=== PATIENT | male | born 1945 | race Caucasian/White ===

== ENCOUNTER 2017-11-02 07:56 | Inpatient (IN) | payer MEDICARE, OTHER ==
[~2017-11-02] VITALS: Ht 170.2 cm; Wt 116.8 kg
[~2017-11-02 07:56] MED LIST: ACTOS30 MG PO; AMOXICILLIN 8751 TAB PO; CAPOTEN 50MG50 MG PO; GLUCOPHAGE500 MG/TAB PO; GLUCOPHAGE850 MG/TAB PO; ILOTYCIN5 MG/GM; JANUVIA50 MG PO; LASIX 40MG TABL40 MG PO; NORCO 325 MG-51 TAB PO; NORVASC 5MG5 MG/TAB PO; PERCOCET 325 MG1 TA2 PO; PREDNISONE10 MG PO; PYRIDIUM 100MG100 MG PO; SENOKOT S 50 MG1 TAB PO; SODIUM BICARBO650 MG PO; SYNTHROID0.175 MG PO; TIROSINT100 MCG PO; TYLENOL 500MG500 MG PO; ZANTAC 150MG T150 MG PO; ZESTRIL 5MG5 MG PO
[2017-11-02 08:06] VITALS: BP 155/72; PULSE 95; TEMP 97.4
[2017-11-02] MEDS ORDERED: VITAMIN D 1001000 IU PO (08:30)
[2017-11-02] MEDS ORDERED: IRON TABLETS325 MG PO (08:32)
[2017-11-02] MEDS ORDERED: CALCITRIOL PO (08:33)
[2017-11-02] MEDS ORDERED: PREDNISONE10 MG PO (08:33)
[2017-11-02] MEDS ORDERED: TUMS ULTRA1000 MG PO (08:34)
[2017-11-02] MEDS ORDERED: SODIUM BICARBO650 MG PO (08:37)
[2017-11-02 09:04] LABS: BASO % 0.4 % (0.0-2.0); EOS # 0.1 (0.0-0.7); EOS % 1.3 % (0-4.0); GRAN # 6.4 (1.4-6.5); GRAN % 76.1 % (42.2-75.2); HEMATOCRIT 32.1 % (42.0-52.0); HEMOGLOBIN 9.9 g/dl (13.5-18.0); LYMPH # 1.3 (1.2-3.4); LYMPH % 14.9 % (20.0-51.0); MEAN CELL VOLUME 94 fl (80.0-100.0); MEAN CORPUSCULAR HEMOGLOBIN 29 pg (27.0-31.0); MEAN CORPUSCULAR HGB CONC 31 g/dl (33.0-37.0); MEAN PLATELET VOLUME 9.9 fl (7.4-10.4); MONO # 0.6 (0.1-0.6); MONO % 6.8 % (1.7-9.3); PLATELET COUNT 166 K/mm3 (130-400); REDCELL DISTRIBUTION WIDTH-CV 15.8 % (11.5-14.5)
[2017-11-02 09:24] LABS: ALBUMIN 3.5 gm/dL (3.5-5.0); BILIRUBIN,TOTAL 0.5 mg/dL (0.0-1.0); CALCIUM 9.4 mg/dL (8.4-10.2); PHOSPHOROUS 4.2 mg/dL (2.5-4.5); POTASSIUM 3.6 mmol/L (3.4-5.0); TOTAL PROTEIN 6.9 gm/dL (6.4-8.2)
[2017-11-02 09:43] LABS: CREATININE, serum 4.96 mg/dL (0.66-1.25)
[2017-11-02 12:04] VITALS: BP 120/62; PULSE 84; TEMP 98.1
[2017-11-02 15:47] VITALS: BP 117/45; PULSE 84; TEMP 99
[2017-11-02 20:19] VITALS: BP 132/50; PULSE 92; TEMP 98.8
[2017-11-02 23:37] LABS: HEPATITIS C VIRUS ANTIBODY Negative (())
[2017-11-03] VITALS (9 sets, daily range): BP systolic 112–159; BP diastolic 49–86; PULSE 77–99; TEMP 98.6–101.2
[2017-11-03 00:25] LABS: HEPATITIS B CORE AB,TOTAL Negative (()); HEPATITIS B SURFACE ANTIBODY <2.0 (()); HEPATITIS B SURFACE ANTIGEN Negative (())
[2017-11-03 09:39] LABS: ALBUMIN 3.5 gm/dL (3.5-5.0); CALCIUM 9.5 mg/dL (8.4-10.2); PHOSPHOROUS 3.3 mg/dL (2.5-4.5); POTASSIUM 3.9 mmol/L (3.4-5.0)
[2017-11-03 09:50] LABS: CREATININE, serum 3.99 mg/dL (0.66-1.25)
[2017-11-04 00:30] VITALS: BP 115/39; PULSE 92; TEMP 99.6
[2017-11-04 06:23] VITALS: BP 136/56; PULSE 96; TEMP 98.1
[2017-11-04 09:00] LABS: ALBUMIN 2.9 gm/dL (3.5-5.0); CALCIUM 8.6 mg/dL (8.4-10.2); PHOSPHOROUS 3.6 mg/dL (2.5-4.5); POTASSIUM 3.9 mmol/L (3.4-5.0)
[2017-11-04 09:06] LABS: CREATININE, serum 4.16 mg/dL (0.66-1.25)
[2017-11-04 12:18] VITALS: BP 121/41; PULSE 95; TEMP 98
[2017-11-04 12:30] LABS: BASO % 0.3 % (0.0-2.0); EOS % 0.4 % (0-4.0); GRAN # 7.7 (1.4-6.5); GRAN % 78.4 % (42.2-75.2); LYMPH # 0.9 (1.2-3.4); MEAN CELL VOLUME 95 fl (80.0-100.0); MEAN CORPUSCULAR HGB CONC 31 g/dl (33.0-37.0); MEAN PLATELET VOLUME 9.5 fl (7.4-10.4); MONO # 1.1 (0.1-0.6); MONO % 11.2 % (1.7-9.3); PLATELET COUNT 125 K/mm3 (130-400); RED BLOOD COUNT 2.85 M/mm3 (4.20-5.60); REDCELL DISTRIBUTION WIDTH-CV 15.4 % (11.5-14.5)
[2017-11-04 12:37] LABS: HEMOGLOBIN 8.3 g/dl (13.5-18.0); MEAN CORPUSCULAR HEMOGLOBIN 29 pg (27.0-31.0)
[2017-11-04 13:07] LABS: ERYTHROCYTE SEDIMENTATION RATE 123 mm/hr (0-30)
[2017-11-04 16:50] LABS: COLLECTION METHOD CLEAN CATCH
[2017-11-04 17:01] LABS: PH 5 (5-8); SQUAMOUS EPITHELIAL None Seen /hpf; URINE APPEARANCE Hazy; URINE BACTERIA None Seen /hpf; URINE BILIRUBIN Negative (NEGATIVE); URINE BLOOD 1+ (NEGATIVE); URINE COLOR Yellow; URINE GLUCOSE Negative (NEGATIVE); URINE KETONE Negative (NEGATIVE); URINE LEUKOCYTE ESTERASE Negative (NEGATIVE); URINE NITRATE Negative (NEGATIVE); URINE PROTEIN(semi-quant) 1+ (NEGATIVE); URINE RBC 0-2 /hpf; URINE UROBILINOGEN Negative (NEGATIVE)
[2017-11-04 17:03] VITALS: BP 119/48; PULSE 105; TEMP 101.1
[2017-11-04 19:43] VITALS: BP 110/40; PULSE 110; TEMP 99.6
[2017-11-05 00:08] VITALS: BP 106/43; PULSE 116; TEMP 102.2
[2017-11-05 04:16] VITALS: BP 96/39; PULSE 108; TEMP 99.7
[2017-11-05 07:38] LABS: HCV GENOTYPE Undetected (())
[2017-11-05 08:04] LABS: BASO % 0.3 % (0.0-2.0); EOS # 0.1 (0.0-0.7); EOS % 0.5 % (0-4.0); GRAN % 77.1 % (42.2-75.2); LYMPH # 1.3 (1.2-3.4); LYMPH % 11.4 % (20.0-51.0); MEAN CELL VOLUME 96 fl (80.0-100.0); MEAN CORPUSCULAR HGB CONC 31 g/dl (33.0-37.0); MEAN PLATELET VOLUME 9.7 fl (7.4-10.4); MONO # 1.2 (0.1-0.6); MONO % 10.1 % (1.7-9.3); PLATELET COUNT 111 K/mm3 (130-400); RED BLOOD COUNT 2.67 M/mm3 (4.20-5.60); REDCELL DISTRIBUTION WIDTH-CV 15.6 % (11.5-14.5)
[2017-11-05 08:09] LABS: HEMATOCRIT 25.6 % (42.0-52.0); HEMOGLOBIN 7.8 g/dl (13.5-18.0); MEAN CORPUSCULAR HEMOGLOBIN 29 pg (27.0-31.0)
[2017-11-05 08:17] LABS: ALBUMIN 2.9 gm/dL (3.5-5.0); CALCIUM 8.7 mg/dL (8.4-10.2); PHOSPHOROUS 3.7 mg/dL (2.5-4.5); POTASSIUM 4.6 mmol/L (3.4-5.0)
[2017-11-05 08:26] LABS: CREATININE, serum 4.39 mg/dL (0.66-1.25)
[2017-11-05 12:15] VITALS: BP 94/53; PULSE 111; TEMP 100.9
[2017-11-05 16:03] VITALS: BP 96/46; PULSE 123; TEMP 99.2
[2017-11-05 20:45] VITALS: BP 90/48; PULSE 103; TEMP 102.8
[2017-11-06] VITALS (7 sets, daily range): BP systolic 91–135; BP diastolic 36–77; PULSE 64–90; TEMP 98.3–99.8
[2017-11-06 06:21] LABS: MEAN CELL VOLUME 96 fl (80.0-100.0); MEAN CORPUSCULAR HGB CONC 31 g/dl (33.0-37.0); MEAN PLATELET VOLUME 10.4 fl (7.4-10.4); PLATELET COUNT 125 K/mm3 (130-400); RED BLOOD COUNT 2.53 M/mm3 (4.20-5.60); REDCELL DISTRIBUTION WIDTH-CV 15.4 % (11.5-14.5)
[2017-11-06 06:25] LABS: HEMATOCRIT 24.2 % (42.0-52.0); HEMOGLOBIN 7.5 g/dl (13.5-18.0); MEAN CORPUSCULAR HEMOGLOBIN 30 pg (27.0-31.0)
[2017-11-06 06:29] LABS: ALBUMIN 2.9 gm/dL (3.5-5.0); CALCIUM 8.9 mg/dL (8.4-10.2); PHOSPHOROUS 4.8 mg/dL (2.5-4.5); POTASSIUM 4.4 mmol/L (3.4-5.0)
[2017-11-06 06:44] LABS: CREATININE, serum 4.33 mg/dL (0.66-1.25)
[2017-11-06 09:16] LABS: BAND 53 % (0-10); LYMPHOCYTE 6 % (20.0-51.0); NEUTROPHILS 40 % (42.0-75.2); NUCLEATED RED BLOOD CELL 1 (0-6); OVALOCYTES 1+; PLATELET ESTIMATE NORMAL (NORMAL)
[2017-11-07] VITALS (7 sets, daily range): BP systolic 92–109; BP diastolic 43–62; PULSE 77–84; TEMP 97.6–99.1
[2017-11-07 06:47] LABS: BASO % 0.3 % (0.0-2.0); EOS # 0.1 (0.0-0.7); EOS % 1.4 % (0-4.0); GRAN # 4.6 (1.4-6.5); GRAN % 73.9 % (42.2-75.2); LYMPH # 0.9 (1.2-3.4); LYMPH % 14.9 % (20.0-51.0); MEAN CELL VOLUME 94 fl (80.0-100.0); MEAN CORPUSCULAR HGB CONC 31 g/dl (33.0-37.0); MEAN PLATELET VOLUME 10.6 fl (7.4-10.4); MONO # 0.6 (0.1-0.6); PLATELET COUNT 137 K/mm3 (130-400); REDCELL DISTRIBUTION WIDTH-CV 15.2 % (11.5-14.5)
[2017-11-07 06:50] LABS: HEMATOCRIT 22.6 % (42.0-52.0); MEAN CORPUSCULAR HEMOGLOBIN 29 pg (27.0-31.0)
[2017-11-07 06:54] LABS: ALBUMIN 2.8 gm/dL (3.5-5.0); CALCIUM 8.7 mg/dL (8.4-10.2); POTASSIUM 4.3 mmol/L (3.4-5.0)
[2017-11-07 06:56] LABS: CREATININE, serum 5.7 mg/dL (0.66-1.25)
[2017-11-08 05:01] VITALS: BP 97/58; PULSE 77; TEMP 98
[2017-11-08 06:51] LABS: MEAN CELL VOLUME 94 fl (80.0-100.0); MEAN CORPUSCULAR HGB CONC 31 g/dl (33.0-37.0); PLATELET COUNT 160 K/mm3 (130-400); RED BLOOD COUNT 2.67 M/mm3 (4.20-5.60); REDCELL DISTRIBUTION WIDTH-CV 15.1 % (11.5-14.5)
[2017-11-08 06:53] LABS: HEMATOCRIT 25.2 % (42.0-52.0); HEMOGLOBIN 7.7 g/dl (13.5-18.0); MEAN CORPUSCULAR HEMOGLOBIN 29 pg (27.0-31.0)
[2017-11-08 07:09] LABS: ALBUMIN 2.9 gm/dL (3.5-5.0); CALCIUM 8.7 mg/dL (8.4-10.2); PHOSPHOROUS 4.9 mg/dL (2.5-4.5)
[2017-11-08 07:14] LABS: CREATININE, serum 6.75 mg/dL (0.66-1.25)
[2017-11-08 07:19] LABS: EOSINOPHIL 4 % (0-4); LYMPHOCYTE 20 % (20.0-51.0); MYELOCYTE 1 % (0-0); NEUTROPHILS 63 % (42.0-75.2); PLATELET ESTIMATE NORMAL (NORMAL)
[2017-11-08 07:20] LABS: POLYCHROMASIA 1+
[2017-11-08 08:27] VITALS: BP 99/44; PULSE 76; TEMP 98.4
[2017-11-08 11:16] VITALS: BP 93/38; PULSE 78; TEMP 98.6
[2017-11-08] MEDS ORDERED: DOXYCYCLINE HY100 MG PO (11:23)
[2017-11-08] MEDS ORDERED: ZYLOPRIM 300MG300 MG PO (11:24)
== END 2017-11-08 13:15 | disposition home or self-care (01) | DRG 685 ==
LOC: MEDICAL 07:56
PROVIDERS: Internal Medicine Nephrology
PROC: 02H633Z Insertion of Infusion Device into Right Atrium, Percutaneous Approach (ICD-10-PCS; principal; 2017-11-03)
PROC: 0S9C3ZX Drainage of Right Knee Joint, Percutaneous Approach, Diagnostic (ICD-10-PCS; 2017-11-04)
PROC: 5A1D70Z Performance of Urinary Filtration, Intermittent, Less than 6 Hours Per Day (ICD-10-PCS; 2017-11-04)
PROC: 5A1D70Z Performance of Urinary Filtration, Intermittent, Less than 6 Hours Per Day (ICD-10-PCS; 2017-11-05)
DX: Z49.01 Encounter for fitting and adjustment of extracorporeal dialysis catheter (principal); N18.6 End stage renal disease; I13.2 Hypertensive heart and chronic kidney disease with heart failure and with stage 5 chronic kidney disease, or end stage renal disease; E11.22 Type 2 diabetes mellitus with diabetic chronic kidney disease; E11.21 Type 2 diabetes mellitus with diabetic nephropathy; I50.9 Heart failure, unspecified; D63.1 Anemia in chronic kidney disease; M25.461 Effusion, right knee; Z87.442 Personal history of urinary calculi; M10.9 Gout, unspecified
CPT/HCPCS: C1750; C1769; J0690; J0881; J1644; J1956; J2250; J3010; J3370; J7050; J7120; J7512

== ENCOUNTER 2017-11-23 11:10 | Outpatient (CLI) | payer MEDICARE, OTHER ==
[2017-11-23] VITALS (9 sets, daily range): BP systolic 85–118; BP diastolic 34–99; PULSE 70–103; TEMP 97.6–98
[~2017-11-23] VITALS: Ht 170.2 cm; Wt 110.0 kg
[~2017-11-23 11:10] MED LIST changes: +CALCITRIOL PO; +DOXYCYCLINE HY100 MG PO; +IRON TABLETS325 MG PO; +TUMS ULTRA1000 MG PO; +VITAMIN D 1001000 IU PO; +ZYLOPRIM 300MG300 MG PO
[2017-11-23 13:14] LABS: MEAN CELL VOLUME 96 fl (80.0-100.0); MEAN CORPUSCULAR HGB CONC 31 g/dl (33.0-37.0); MEAN PLATELET VOLUME 11.4 fl (7.4-10.4); PLATELET COUNT 131 K/mm3 (130-400); RED BLOOD COUNT 2.86 M/mm3 (4.20-5.60); REDCELL DISTRIBUTION WIDTH-CV 16.6 % (11.5-14.5)
[2017-11-23 13:17] LABS: HEMATOCRIT 27.4 % (42.0-52.0); HEMOGLOBIN 8.4 g/dl (13.5-18.0); MEAN CORPUSCULAR HEMOGLOBIN 29 pg (27.0-31.0)
[2017-11-23 13:24] LABS: CALCIUM 9.2 mg/dL (8.4-10.2); POTASSIUM 5.2 mmol/L (3.4-5.0)
[2017-11-23 13:27] LABS: INR 1.3 (0.8-3.0); PROTHROMBIN TIME 14.6 SECONDS (9.7-12.8)
[2017-11-23 13:32] LABS: CREATININE, serum 6.78 mg/dL (0.66-1.25)
== END 2017-11-23 17:05 | disposition home or self-care (01) ==
LOC: COL.CAR 11:10
PROVIDERS: Radiology Diagnostic Radiology
DX: I12.0 Hypertensive chronic kidney disease with stage 5 chronic kidney disease or end stage renal disease (principal); E11.22 Type 2 diabetes mellitus with diabetic chronic kidney disease; N18.6 End stage renal disease
CPT/HCPCS: C1769; J0690; J1644; J2250; J3010

== ENCOUNTER → 2018-01-04 | Outpatient (CLI) | payer MEDICARE, OTHER ==
[~2018-01-04] VITALS: Ht 170.2 cm; Wt 108.2 kg
[~2018-01-04] MED LIST changes: +COUMADIN 2MG2 MG/TAB PO; +COUMADIN4 MG PO
[2018-01-04 13:33] VITALS: BP 132/60; PULSE 75
[2018-01-04 13:43] LABS: INR 1.2 (0.8-3.0); PROTHROMBIN TIME 13.8 SECONDS (9.7-12.8)
[2018-01-04 14:25] VITALS: BP 118/56; PULSE 52
== END ==
LOC: COL.RAD 13:17
PROVIDERS: Internal Medicine Nephrology
DX: Z49.01 Encounter for fitting and adjustment of extracorporeal dialysis catheter (principal)

== ENCOUNTER 2018-01-11 15:58 | Inpatient (IN) | payer MEDICARE, OTHER ==
[~2018-01-11] VITALS: Ht 170.2 cm; Wt 109.5 kg
[2018-01-11 17:57] VITALS: BP 100/60; PULSE 63; TEMP 98.6
[2018-01-11 19:05] LABS: COLLECTION METHOD CATHETER
[2018-01-11 19:22] LABS: BUDDING YEAST Present /hpf; PH 6 (5-8); SQUAMOUS EPITHELIAL 0-2 /hpf; URINE APPEARANCE Cloudy; URINE BACTERIA Rare /hpf; URINE BILIRUBIN Negative (NEGATIVE); URINE BLOOD 2+ (NEGATIVE); URINE COLOR Yellow; URINE GLUCOSE Negative (NEGATIVE); URINE KETONE Negative (NEGATIVE); URINE LEUKOCYTE ESTERASE 3+ (NEGATIVE); URINE NITRATE Negative (NEGATIVE); URINE PROTEIN(semi-quant) 2+ (NEGATIVE); URINE RBC 20-50 /hpf; URINE UROBILINOGEN Negative (NEGATIVE)
[2018-01-11 21:57] VITALS: BP 115/66; PULSE 134; TEMP 98.7
[2018-01-12] VITALS (9 sets, daily range): BP systolic 85–142; BP diastolic 25–88; PULSE 52–144; TEMP 97.5–100.8
[2018-01-12 06:12] LABS: INR 1.5 (0.8-3.0); PROTHROMBIN TIME 17.9 SECONDS (9.7-12.8)
[2018-01-12 06:15] LABS: MEAN CELL VOLUME 95 fl (80.0-100.0); MEAN CORPUSCULAR HGB CONC 32 g/dl (33.0-37.0); MEAN PLATELET VOLUME 11.7 fl (7.4-10.4); PLATELET COUNT 126 K/mm3 (130-400); RED BLOOD COUNT 3.16 M/mm3 (4.20-5.60); REDCELL DISTRIBUTION WIDTH-CV 16.4 % (11.5-14.5)
[2018-01-12 06:18] LABS: ALBUMIN 2.9 gm/dL (3.5-5.0); CALCIUM 8.1 mg/dL (8.4-10.2); PHOSPHOROUS 8.2 mg/dL (2.5-4.5); POTASSIUM 5.2 mmol/L (3.4-5.0)
[2018-01-12 06:20] LABS: HEMOGLOBIN 9.6 g/dl (13.5-18.0); MEAN CORPUSCULAR HEMOGLOBIN 30 pg (27.0-31.0)
[2018-01-12 06:29] LABS: CREATININE, serum 7.54 mg/dL (0.66-1.25)
[2018-01-12 06:58] LABS: BAND 16 % (0-10); LYMPHOCYTE 4 % (20.0-51.0); MYELOCYTE 1 % (0-0); NEUTROPHILS 78 % (42.0-75.2)
[2018-01-12 06:59] LABS: ANISOCYTOSIS 1+; PLATELET ESTIMATE DECREASED (NORMAL)
[2018-01-12 07:00] LABS: DOHLE BODIES PRESENT; TOXIC GRANULATION PRESENT
[2018-01-12 12:55] LABS: ALBUMIN 2.9 gm/dL (3.5-5.0); BILIRUBIN,DIRECT 0.4 mg/dL (0.0-0.4); BILIRUBIN,TOTAL 0.4 mg/dL (0.0-1.0); TOTAL PROTEIN 6.3 gm/dL (6.4-8.2)
[2018-01-13] VITALS (9 sets, daily range): BP systolic 71–112; BP diastolic 25–68; PULSE 68–118; TEMP 97.8–98.9
[2018-01-13 07:01] LABS: PROTHROMBIN TIME 23.8 SECONDS (9.7-12.8)
[2018-01-13 07:03] LABS: ALBUMIN 2.4 gm/dL (3.5-5.0); MEAN CELL VOLUME 95 fl (80.0-100.0); MEAN CORPUSCULAR HGB CONC 32 g/dl (33.0-37.0); MEAN PLATELET VOLUME 12.2 fl (7.4-10.4); PHOSPHOROUS 6.5 mg/dL (2.5-4.5); PLATELET COUNT 105 K/mm3 (130-400); POTASSIUM 4.7 mmol/L (3.4-5.0); RED BLOOD COUNT 2.69 M/mm3 (4.20-5.60); REDCELL DISTRIBUTION WIDTH-CV 16.2 % (11.5-14.5)
[2018-01-13 07:08] LABS: VANCOMYCIN,RANDOM 30.44 ug/mL
[2018-01-13 07:33] LABS: CREATININE, serum 4.81 mg/dL (0.66-1.25)
[2018-01-13 07:40] LABS: HEMATOCRIT 25.6 % (42.0-52.0); HEMOGLOBIN 8.1 g/dl (13.5-18.0); MEAN CORPUSCULAR HEMOGLOBIN 30 pg (27.0-31.0)
[2018-01-13 08:20] LABS: BAND 40 % (0-10); EOSINOPHIL 1 % (0-4); LYMPHOCYTE 11 % (20.0-51.0); NEUTROPHILS 47 % (42.0-75.2); PLATELET ESTIMATE DECREASED (NORMAL); TOXIC GRANULATION PRESENT
[2018-01-13 08:21] LABS: ANISOCYTOSIS 2+; HYPOCHROMIA 1+
[2018-01-13 08:22] LABS: TEAR DROP CELLS 1+
[2018-01-14 03:52] VITALS: PULSE 78; TEMP 98.2
[2018-01-14 06:01] VITALS: BP 97/48
[2018-01-14 07:40] LABS: MEAN CELL VOLUME 98 fl (80.0-100.0); MEAN CORPUSCULAR HGB CONC 30 g/dl (33.0-37.0); MEAN PLATELET VOLUME 10.9 fl (7.4-10.4); PLATELET COUNT 118 K/mm3 (130-400); RED BLOOD COUNT 2.73 M/mm3 (4.20-5.60); REDCELL DISTRIBUTION WIDTH-CV 16.9 % (11.5-14.5)
[2018-01-14 07:45] LABS: INR 3.4 (0.8-3.0); PROTHROMBIN TIME 40.9 SECONDS (9.7-12.8)
[2018-01-14 07:46] LABS: HEMATOCRIT 26.8 % (42.0-52.0); HEMOGLOBIN 8.1 g/dl (13.5-18.0); MEAN CORPUSCULAR HEMOGLOBIN 30 pg (27.0-31.0)
[2018-01-14 07:53] LABS: ALBUMIN 2.3 gm/dL (3.5-5.0); CALCIUM 7.9 mg/dL (8.4-10.2); CREATININE, serum 3.76 mg/dL (0.66-1.25); PHOSPHOROUS 4.8 mg/dL (2.5-4.5); POTASSIUM 4.3 mmol/L (3.4-5.0)
[2018-01-14 08:15] LABS: VANCOMYCIN,RANDOM 19.2 ug/mL
[2018-01-14 08:30] VITALS: BP 78/36; PULSE 81; TEMP 98.2
[2018-01-14 08:42] LABS: ANISOCYTOSIS 1+; BAND 19 % (0-10); EOSINOPHIL 2 % (0-4); HYPOCHROMIA 3+; LYMPHOCYTE 11 % (20.0-51.0); NEUTROPHILS 64 % (42.0-75.2); PLATELET ESTIMATE DECREASED (NORMAL)
[2018-01-14 12:22] VITALS: BP 88/39; PULSE 81; TEMP 98.2
[2018-01-14 15:17] VITALS: BP 88/66; PULSE 84; TEMP 98
[2018-01-14 21:31] VITALS: BP 94/31; PULSE 143; TEMP 98.6
[2018-01-15] VITALS (7 sets, daily range): BP systolic 76–119; BP diastolic 27–49; PULSE 59–144; TEMP 98–99.7
[2018-01-15 07:14] LABS: MEAN CELL VOLUME 99 fl (80.0-100.0); MEAN CORPUSCULAR HGB CONC 30 g/dl (33.0-37.0); MEAN PLATELET VOLUME 11.4 fl (7.4-10.4); PLATELET COUNT 152 K/mm3 (130-400); RED BLOOD COUNT 2.89 M/mm3 (4.20-5.60); REDCELL DISTRIBUTION WIDTH-CV 16.8 % (11.5-14.5)
[2018-01-15 07:21] LABS: HEMATOCRIT 28.7 % (42.0-52.0); HEMOGLOBIN 8.6 g/dl (13.5-18.0); MEAN CORPUSCULAR HEMOGLOBIN 30 pg (27.0-31.0)
[2018-01-15 07:34] LABS: ALBUMIN 2.3 gm/dL (3.5-5.0); CALCIUM 7.8 mg/dL (8.4-10.2); CREATININE, serum 3.18 mg/dL (0.66-1.25); PHOSPHOROUS 4.3 mg/dL (2.5-4.5)
[2018-01-15 07:47] LABS: PROTHROMBIN TIME 60.2 SECONDS (9.7-12.8)
[2018-01-15 08:50] LABS: ANISOCYTOSIS 1+; BAND 10 % (0-10); BASOPHIL 1 % (0-2); EOSINOPHIL 6 % (0-4); HYPOCHROMIA 2+; LYMPHOCYTE 25 % (20.0-51.0); NEUTROPHILS 49 % (42.0-75.2); OVALOCYTES 1+; PLATELET ESTIMATE NORMAL (NORMAL)
[2018-01-15 19:53] LABS: COLLECTION METHOD CATHETER
[2018-01-15 20:07] LABS: PH 6 (5-8); SQUAMOUS EPITHELIAL 0-2 /hpf; URINE APPEARANCE Turbid; URINE BACTERIA None Seen /hpf; URINE BILIRUBIN Negative (NEGATIVE); URINE BLOOD 2+ (NEGATIVE); URINE COLOR Amber; URINE GLUCOSE Negative (NEGATIVE); URINE KETONE Negative (NEGATIVE); URINE LEUKOCYTE ESTERASE 3+ (NEGATIVE); URINE NITRATE Negative (NEGATIVE); URINE PROTEIN(semi-quant) 2+ (NEGATIVE); URINE RBC >50 /hpf; URINE UROBILINOGEN Negative (NEGATIVE); URINE WBC >50 /hpf
[2018-01-16 03:26] VITALS: BP 111/84; PULSE 117; TEMP 98.8
[2018-01-16 06:46] LABS: BASO % 0.1 % (0.0-2.0); EOS % 0.4 % (0-4.0); GRAN # 5.8 (1.4-6.5); GRAN % 85.4 % (42.2-75.2); LYMPH # 0.6 (1.2-3.4); LYMPH % 9.5 % (20.0-51.0); MEAN CELL VOLUME 99 fl (80.0-100.0); MEAN CORPUSCULAR HGB CONC 31 g/dl (33.0-37.0); MEAN PLATELET VOLUME 11.7 fl (7.4-10.4); MONO # 0.3 (0.1-0.6); MONO % 3.7 % (1.7-9.3); PLATELET COUNT 159 K/mm3 (130-400); RED BLOOD COUNT 2.78 M/mm3 (4.20-5.60); REDCELL DISTRIBUTION WIDTH-CV 16.9 % (11.5-14.5)
[2018-01-16 06:53] LABS: HEMATOCRIT 27.5 % (42.0-52.0); HEMOGLOBIN 8.4 g/dl (13.5-18.0); MEAN CORPUSCULAR HEMOGLOBIN 30 pg (27.0-31.0)
[2018-01-16 06:55] LABS: ALBUMIN 2.3 gm/dL (3.5-5.0); CALCIUM 7.7 mg/dL (8.4-10.2); PHOSPHOROUS 5.1 mg/dL (2.5-4.5); POTASSIUM 4.1 mmol/L (3.4-5.0)
[2018-01-16 07:24] LABS: CREATININE, serum 4.68 mg/dL (0.66-1.25)
[2018-01-16 07:26] LABS: INR 5.6 (0.8-3.0); PROTHROMBIN TIME 67.7 SECONDS (9.7-12.8)
[2018-01-16 07:52] VITALS: BP 88/49; PULSE 140; TEMP 98.6
[2018-01-16 12:28] VITALS: BP 97/35; PULSE 135; TEMP 98.2
[2018-01-16 16:41] VITALS: BP 80/53; PULSE 100; TEMP 98.2
[2018-01-16 21:50] VITALS: BP 106/42; PULSE 137; TEMP 98.6
[2018-01-16 23:57] VITALS: BP 97/38; PULSE 133; TEMP 98.6
[2018-01-17 02:45] VITALS: BP 91/31; PULSE 127; TEMP 98.5
[2018-01-17 07:09] LABS: MEAN CELL VOLUME 98 fl (80.0-100.0); MEAN CORPUSCULAR HGB CONC 31 g/dl (33.0-37.0); MEAN PLATELET VOLUME 10.5 fl (7.4-10.4); PLATELET COUNT 155 K/mm3 (130-400); RED BLOOD COUNT 2.68 M/mm3 (4.20-5.60)
[2018-01-17 07:10] LABS: HEMATOCRIT 26.2 % (42.0-52.0); MEAN CORPUSCULAR HEMOGLOBIN 30 pg (27.0-31.0)
[2018-01-17 07:28] LABS: INR 2.5 (0.8-3.0); PROTHROMBIN TIME 29.9 SECONDS (9.7-12.8)
[2018-01-17 07:34] LABS: ALBUMIN 2.2 gm/dL (3.5-5.0); CALCIUM 7.6 mg/dL (8.4-10.2); PHOSPHOROUS 7.6 mg/dL (2.5-4.5); POTASSIUM 4.5 mmol/L (3.4-5.0)
[2018-01-17 07:51] LABS: CREATININE, serum 6.23 mg/dL (0.66-1.25)
[2018-01-17 08:09] VITALS: BP 79/53; PULSE 127; TEMP 97.8
[2018-01-17 08:31] LABS: ANISOCYTOSIS 1+; BAND 9 % (0-10); BASOPHIL 1 % (0-2); LYMPHOCYTE 12 % (20.0-51.0); NEUTROPHILS 77 % (42.0-75.2); OVALOCYTES 1+; PLATELET ESTIMATE NORMAL (NORMAL)
[2018-01-17 11:30] VITALS: BP 87/42; PULSE 74
[2018-01-17 11:45] VITALS: BP 80/35; PULSE 73
[2018-01-17 12:00] VITALS: BP 89/55; PULSE 73; TEMP 97.5
[2018-01-17 21:45] VITALS: BP 126/107; BP 84/46; PULSE 85; TEMP 98.1
[2018-01-18 00:34] VITALS: BP 91/61; PULSE 82; TEMP 98.2
[2018-01-18 04:20] VITALS: BP 106/75; PULSE 83; TEMP 98.8
[2018-01-18 06:33] LABS: INR 2.4 (0.8-3.0); PROTHROMBIN TIME 28.5 SECONDS (9.7-12.8)
[2018-01-18 08:21] VITALS: BP 113/89; PULSE 83; TEMP 98.3
[2018-01-18 09:06] LABS: BASO % 0.4 % (0.0-2.0); EOS # 0.1 (0.0-0.7); EOS % 0.9 % (0-4.0); GRAN # 4.3 (1.4-6.5); GRAN % 80.8 % (42.2-75.2); LYMPH # 0.7 (1.2-3.4); LYMPH % 12.9 % (20.0-51.0); MEAN CELL VOLUME 99 fl (80.0-100.0); MEAN CORPUSCULAR HGB CONC 30 g/dl (33.0-37.0); MEAN PLATELET VOLUME 11.8 fl (7.4-10.4); MONO # 0.2 (0.1-0.6); MONO % 4.2 % (1.7-9.3); PLATELET COUNT 192 K/mm3 (130-400); RED BLOOD COUNT 2.69 M/mm3 (4.20-5.60); REDCELL DISTRIBUTION WIDTH-CV 17.2 % (11.5-14.5)
[2018-01-18 09:08] LABS: HEMATOCRIT 26.5 % (42.0-52.0); MEAN CORPUSCULAR HEMOGLOBIN 30 pg (27.0-31.0)
[2018-01-18 12:18] VITALS: BP 106/62; PULSE 88; TEMP 98.1
[2018-01-18 15:52] VITALS: BP 128/51; PULSE 76; TEMP 98.1
[2018-01-18 20:17] VITALS: BP 78/55; PULSE 97; TEMP 98.6
[2018-01-19] VITALS: BP 118/45; PULSE 75; TEMP 98.6
[2018-01-19 03:45] VITALS: BP 101/37; PULSE 72; TEMP 97.9
[2018-01-19 06:58] LABS: INR 2.5 (0.8-3.0); PROTHROMBIN TIME 29.1 SECONDS (9.7-12.8)
[2018-01-19 07:29] LABS: ALBUMIN 2.3 gm/dL (3.5-5.0); CALCIUM 7.9 mg/dL (8.4-10.2); PHOSPHOROUS 6.2 mg/dL (2.5-4.5)
[2018-01-19 07:30] LABS: CREATININE, serum 5.41 mg/dL (0.66-1.25)
[2018-01-19 10:37] VITALS: BP 106/46; PULSE 76; TEMP 97.8
[2018-01-19 15:38] VITALS: BP 93/28; PULSE 84; TEMP 97.8
[2018-01-19 20:34] VITALS: BP 87/36; PULSE 86; TEMP 98.1
[2018-01-19 21:39] VITALS: BP 114/37
[2018-01-20] VITALS (8 sets, daily range): BP systolic 95–147; BP diastolic 27–97; PULSE 71–79; TEMP 97.8–98.9
[2018-01-20 06:44] LABS: INR 2.7 (0.8-3.0); PROTHROMBIN TIME 31.5 SECONDS (9.7-12.8)
[2018-01-21 01:03] VITALS: BP 106/42
[2018-01-21 04:11] VITALS: BP 130/49; PULSE 72; TEMP 97.8
[2018-01-21 07:01] LABS: INR 2.9 (0.8-3.0); PROTHROMBIN TIME 34.4 SECONDS (9.7-12.8)
[2018-01-21] MEDS ORDERED: COUMADIN 2MG2 MG/TAB PO (11:24)
[2018-01-21] MEDS ORDERED: CORDARONE200 MG/TAB PO (11:26)
[2018-01-21] MEDS ORDERED: VANCOMYCIN HYD750 MG IV (11:30)
[2018-01-21] MEDS ORDERED: *Vancomycin Dosing P IV (11:30)
[2018-01-21 12:00] VITALS: BP 113/54; PULSE 75; TEMP 97.7
== END 2018-01-21 14:24 | DRG 871 ==
LOC: SURG 15:58 → MEDICAL 17:09 → SURG 17:09 → MEDICAL 01-12 10:11
PROVIDERS: Internal Medicine; Internal Medicine Nephrology; Nurse Practitioner
PROC: 5A1D70Z Performance of Urinary Filtration, Intermittent, Less than 6 Hours Per Day (ICD-10-PCS; principal; 2018-01-12)
PROC: 5A1D70Z Performance of Urinary Filtration, Intermittent, Less than 6 Hours Per Day (ICD-10-PCS; 2018-01-12)
PROC: 5A1D70Z Performance of Urinary Filtration, Intermittent, Less than 6 Hours Per Day (ICD-10-PCS; 2018-01-12)
PROC: 5A1D70Z Performance of Urinary Filtration, Intermittent, Less than 6 Hours Per Day (ICD-10-PCS; 2018-01-12)
PROC: 5A1D70Z Performance of Urinary Filtration, Intermittent, Less than 6 Hours Per Day (ICD-10-PCS; 2018-01-12)
PROC: 5A1D70Z Performance of Urinary Filtration, Intermittent, Less than 6 Hours Per Day (ICD-10-PCS; 2018-01-12)
PROC: 5A2204Z Restoration of Cardiac Rhythm, Single (ICD-10-PCS; 2018-01-12)
PROC: 5A2204Z Restoration of Cardiac Rhythm, Single (ICD-10-PCS; 2018-01-17)
DX: A41.02 Sepsis due to Methicillin resistant Staphylococcus aureus (principal); N18.6 End stage renal disease; I13.2 Hypertensive heart and chronic kidney disease with heart failure and with stage 5 chronic kidney disease, or end stage renal disease; I50.32 Chronic diastolic (congestive) heart failure; N39.0 Urinary tract infection, site not specified; I48.92 Unspecified atrial flutter; I50.22 Chronic systolic (congestive) heart failure; E11.22 Type 2 diabetes mellitus with diabetic chronic kidney disease; Z99.2 Dependence on renal dialysis; B95.62 Methicillin resistant Staphylococcus aureus infection as the cause of diseases classified elsewhere; D63.1 Anemia in chronic kidney disease; I27.22 Pulmonary hypertension due to left heart disease; L89.159 Pressure ulcer of sacral region, unspecified stage; I48.0 Paroxysmal atrial fibrillation; Z79.01 Long term (current) use of anticoagulants
CPT/HCPCS: G9654; J0153; J0696; J0881; J1580; J1815; J2250; J2704; J3010; J3370; J7040; J7050; J7512

== ENCOUNTER → 2018-01-11 | Outpatient (CLI) | payer MEDICARE, OTHER | LOC: ZCOL.LAB 17:25 | DX: Z01.89 Encounter for other specified special examinations (principal) ==

== ENCOUNTER 2018-03-08 08:04 | Day surgery (SDC) | payer MEDICARE, OTHER ==
[~2018-03-08] VITALS: Ht 170.2 cm; Wt 231.0 kg
[~2018-03-08 08:04] MED LIST changes: +*Vancomycin Dosing P IV; +CORDARONE200 MG/TAB PO; +VANCOMYCIN HYD750 MG IV
[2018-03-08] MEDS ORDERED: CORDARONE200 MG/TAB PO (09:22)
[2018-03-08] MEDS ORDERED: PREDNISONE10 MG PO (09:23)
[2018-03-08] MEDS ORDERED: NEPHROCAP PO (09:25)
[2018-03-08] MEDS ORDERED: PROTEIN1 PDR PO (09:27)
[2018-03-08] MEDS ORDERED: SYNTHROID0.2 MG/TAB PO (09:29)
[2018-03-08] MEDS ORDERED: LASIX 40MG TABL40 MG PO (09:31)
[2018-03-08] MEDS ORDERED: TYLENOL 325MG325 MG PO (09:31)
[2018-03-08] MEDS ORDERED: ULTRAM 50MG TAB50 MG PO ×2 (09:32)
[2018-03-08 11:50] VITALS: BP 95/55; PULSE 88; TEMP 97.7
[2018-03-08 12:05] VITALS: BP 112/52; PULSE 88
[2018-03-08 12:20] VITALS: BP 111/49; PULSE 85
[2018-03-08 15:55] VITALS: BP 114/54; PULSE 86; TEMP 97.6
== END 2018-03-08 11:50 | disposition home or self-care (01) ==
LOC: SDCO 08:04
DX: I13.2 Hypertensive heart and chronic kidney disease with heart failure and with stage 5 chronic kidney disease, or end stage renal disease (principal); E11.22 Type 2 diabetes mellitus with diabetic chronic kidney disease; N18.6 End stage renal disease; I50.9 Heart failure, unspecified; E11.40 Type 2 diabetes mellitus with diabetic neuropathy, unspecified; I87.8 Other specified disorders of veins; E03.9 Hypothyroidism, unspecified; M10.9 Gout, unspecified; R31.9 Hematuria, unspecified; K21.9 Gastro-esophageal reflux disease without esophagitis; Z99.2 Dependence on renal dialysis; Z79.01 Long term (current) use of anticoagulants; Z79.82 Long term (current) use of aspirin; Z79.51 Long term (current) use of inhaled steroids; Z79.4 Long term (current) use of insulin; Z80.0 Family history of malignant neoplasm of digestive organs; Z82.49 Family history of ischemic heart disease and other diseases of the circulatory system; Z83.3 Family history of diabetes mellitus; Z80.52 Family history of malignant neoplasm of bladder; Z88.8 Allergy status to other drugs, medicaments and biological substances
CPT/HCPCS: C1788; J0690; J1644; J2250; J2704; J3010